=== PATIENT | female | born 1960 | race Caucasian/White ===

== ENCOUNTER 2016-12-16 11:08 | Emergency (ER) | payer MEDICAID ==
[~2016-12-16] VITALS: Ht 165.1 cm; Wt 90.0 kg
[~2016-12-16 11:08] MED LIST: BP MED; DIET PILL; FLUOXETINE PO; PREVACID 15MG15 M1 PO; XANAX1 MG PO; ZITHROMAX Z PA250 MG PO; ZOCOR20 MG PO; ZYRTEC 10MG10 MG PO
[2016-12-16 11:10] VITALS: BP 108/65; TEMP 98
[2016-12-16] MEDS ORDERED: ALLEGRA 60MG TA60 MG PO (11:25)
[2016-12-16] MEDS ORDERED: PRINZIDE 12.5 M1 TA1 PO (11:25)
[2016-12-16] MEDS ORDERED: SINGULAIR 110 MG/TAB PO (11:26)
[2016-12-16] MEDS ORDERED: LIPITOR 40MG TA40 MG PO (11:26)
[2016-12-16] MEDS ORDERED: ZOLOFT 50MG50 MG PO (11:26)
[2016-12-16] MEDS ORDERED: CHERATUSSIN AC120 ML PO (11:58)
[2016-12-16] MEDS ORDERED: AMOXICILLIN 8751 TAB PO (11:58)
[2016-12-16 12:16] VITALS: PULSE 72
== END 2016-12-16 12:18 | disposition home or self-care (01) ==
LOC: COL.ER 11:08
DX: J32.9 Chronic sinusitis, unspecified (principal); I10 Essential (primary) hypertension; Z87.891 Personal history of nicotine dependence

== ENCOUNTER 2018-09-04 09:23 | Day surgery (SDC) | payer MEDICAID ==
[~2018-09-04] VITALS: Ht 165.1 cm; Wt 94.8 kg
[2018-09-04] VITALS (10 sets, daily range): BP systolic 76–113; BP diastolic 32–66; PULSE 54–75; TEMP 97.7–97.8
[~2018-09-04 09:23] MED LIST changes: +ALLEGRA 60MG TA60 MG PO; +AMOXICILLIN 8751 TAB PO; +CHERATUSSIN AC120 ML PO; +LIPITOR 40MG TA40 MG PO; +PRINZIDE 12.5 M1 TA1 PO; +SINGULAIR 110 MG/TAB PO; +ZOLOFT 100MG100 MG PO
[2018-09-04] MEDS ORDERED: TRICOR 48MG48 MG PO (10:12)
[2018-09-04] MEDS ORDERED: DEXILANT30 MG PO (10:13)
[2018-09-04] MEDS ORDERED: GLUCOTROL10 MG PO (10:13)
[2018-09-04] MEDS ORDERED: CALAN80 MG PO (10:14)
[2018-09-04] MEDS ORDERED: JANUVIA50 MG PO (10:14)
--- NOTE | 2018-09-04 11:55 | NUR ---
Pt returns from endo procedure via cart. Pt ambulates from cart to recliner with RN assist. Pt drowsy and "feeling hot," and answers all questions appropriately. Monitors on and alarms set. Call light within reach. Pt drowsy. Report received from SARAHI Mohamud.
--- NOTE | 2018-09-04 12:05 | NUR ---
Cool washcloth provided for patient. Pt expresses relief, but desires to recline and cool off. Blood glucose checked with a result of 143. Pt reports no nausea or pain, just being warm. Pt has been ill this past week with a cold.
--- NOTE | 2018-09-04 12:30 | NUR ---
Pt remains cooling off and resting. No other complaints voiced.
--- NOTE | 2018-09-04 13:05 | NUR ---
Pt reports feeling much better now, except upon sitting up, she states she feels nauseated and requests Zofran.
--- NOTE | 2018-09-04 13:20 | NUR ---
Pt reports feeling very little nausea now and requests using bathroom.
--- NOTE | 2018-09-04 13:30 | NUR ---
Discharge instructions given to patient. All questions answered to her satisfaction. Handed to her are a thank you card, discharge instructions, diagnosis information, and a discharge med sheet.
--- NOTE | 2018-09-04 13:46 | NUR ---
Pt transferred out of hospital via wheelchair and Lakisha, assist, to private vehicle driven by friend.
== END 2018-09-04 13:46 | disposition home or self-care (01) ==
LOC: SDCO 09:23
DX: Z12.11 Encounter for screening for malignant neoplasm of colon (principal); D12.3 Benign neoplasm of transverse colon; K21.0 Gastro-esophageal reflux disease with esophagitis; K44.9 Diaphragmatic hernia without obstruction or gangrene; K59.00 Constipation, unspecified; K92.1 Melena; K58.0 Irritable bowel syndrome with diarrhea; F41.9 Anxiety disorder, unspecified; E11.9 Type 2 diabetes mellitus without complications; E78.00 Pure hypercholesterolemia, unspecified; Z86.010 Personal history of colon polyps; Z80.0 Family history of malignant neoplasm of digestive organs; Z83.71 Family history of colonic polyps
CPT/HCPCS: J2250; J2310; J2405; J3010; J7030